=== PATIENT | male | born 1995 | race African-American/Black ===

== ENCOUNTER 2021-08-01 20:36 | Emergency (ER) | payer OTHER ==
[2021-08-01] MEDS ORDERED: Ketorolac Tromethamine 30 MG/ML VIAL ONE (21:15)
== END 2021-08-01 21:05 | disposition home or self-care (01) ==
LOC: CSHERS 20:36
DX: S41.112A Laceration without foreign body of left upper arm, initial encounter (principal); V89.2XXA Person injured in unspecified motor-vehicle accident, traffic, initial encounter
CPT/HCPCS: 71045; 93005; 96372; J1885